=== PATIENT | female | born 1950 | race Caucasian/White ===

== ENCOUNTER 2021-10-12 17:25 | Emergency (ER) | payer MEDICARE, BC, SELFPAY ==
[2021-10-12 17:41] VITALS: BP 132/86; PULSE 71; RESP 18; TEMP 37.3; O2SAT 97; BMI 25.1
--- NOTE | 2021-10-12 18:08 | ED.GENADULT ---
HPI - General Adult General Date Seen: 10/12/21 Chief complaint: Urogenital Problems, Female Stated complaint: Urinary tract pain and blood in urine Time Seen by Provider: 10/12/21 17:39 Source: patient History of Present Illness HPI narrative: Patient is a 71-year-old woman who presents for evaluation of dysuria, suprapubic pain, and hematuria which started a little earlier this afternoon. She does note that after arriving here in the emergency department her symptoms seem to be improved. She has not had any severe unilateral abdominal or flank pain, denies any history of kidney stones. She has not had any fever or vomiting. She does note maybe a little bit of nausea. She does have a history of urinary tract infection and felt that her symptoms were similar to previous urinary tract infections. She has not had any diarrhea, black or bloody stools. Denies any other recent illness. She does not smoke or drink. She is here today with her granddaughter, [place]. Medications are reviewed. Related Data Home Medications Medication Instructions Recorded Confirmed diltiazem HCl 120 mg mg PO 10/12/21 capsule,extended release 24 hr metoprolol succinate 25 mg mg PO 10/12/21 tablet,extended release 24 hr omeprazole 20 mg capsule,delayed mg 10/12/21 release sertraline 50 mg tablet mg 10/12/21 Allergies Allergy/AdvReac Type Severity Reaction Status Date / Time Inhaled Anesthetics (Halogen AdvReac Mild Verified 10/12/21 17:45 Based) Review of Systems Status of ROS: Reports: 10 or more systems reviewed and unremarkable except as noted in History and below PFSH PFS Social History Smoking Status: Former smoker What tobacco products do you use: cigarettes Smoking quit date/years: >15 years ago Do you use any of these nicotine containing products: None How often do you have a drink containing alcohol: monthly or less AUDIT-C Alcohol total score: 1 Non-prescribed substance use: denies use Exam Narrative: Exam Narrative: Vital signs as noted above. In general, an alert, well-appearing patient. Head: Normocephalic, atraumatic. Eyes: Pupils are equal reactive. Extraocular movements are full. Conjunctivae are normal. ENT: Mucous membranes are moist. Throat is normal. Neck: Supple without lymphadenopathy. Heart: Regular rate and rhythm. No murmur or rub. Lungs: Clear bilaterally. No increased work of breathing, crackles or wheezes. No CVA tenderness. Abdomen: Soft and nontender. No organomegaly. Extremities: Well perfused. No edema. No calf tenderness. Pulses intact. Neurologic: Patient is alert and oriented to person and place. Speech is fluent. Face is symmetric. Moves all extremities equally. Affect: Normal. Skin: Warm and dry. Well perfused. Const: Vital Signs, click to edit/add: Vital Signs - 24 hr 10/12/21 17:41 10/12/21 19:16 Temperature 99.1 F 99.1 F Pulse Rate [Left P ulse Oximeter] 71 Respiratory Rate 18 18 Blood Pressure [Ri ght Upper Arm] 132/86 132/86 Pulse Oximetry 97 97 Oxygen Delivery Me thod Room Air Room Air Documenting provider has reviewed patient's vital signs: yes Course Course Hospital Course: We obtained a urine sample here, this is notable for greater than 100 red blood cells, 3+ protein, 3+ blood, 10-25 white blood cells and few bacteria. She continues to deny any abdominal or flank pain, and as such I think the likelihood of kidney stone is relatively low. She does continue to note some dysuria. Given that she has only had symptoms for a few hours and does not have any systemic complaints, I do not think she needs further workup at this time for systemic infection. I think it is reasonable to treat her with antibiotics at this time, with the caveats that if she is having any worsening, such as fevers, flank pain, chills, vomiting etcetera that she should return for re-evaluation. She is comfortable with that. I have given her Keflex out of [facility] due to the late hour. She can use [id number] Pyridium if needed for symptomatic relief as well. Vital Signs Vital signs: Initial Vital Signs Temperature 99.1 F 10/12/21 17:41 Temperature Source Temporal Artery Scan 10/12/21 17:41 Pulse Rate 71 10/12/21 17:41 Respiratory Rate 18 10/12/21 17:41 Blood Pressure 132/86 10/12/21 17:41 Blood Pressure Mean 101 10/12/21 17:41 Blood Pressure Position Sitting 10/12/21 17:41 Pulse Oximetry 97 10/12/21 17:41 Oxygen Delivery Method 10/12/21 17:41 Vital Signs Temperature 99.1 F 10/12/21 17:41 Pulse Rate 71 10/12/21 17:41 Respiratory Rate 18 10/12/21 17:41 Blood Pressure 132/86 10/12/21 17:41 Pulse Oximetry 97 10/12/21 17:41 Oxygen Delivery Method 10/12/21 17:41 Temperature 99.1 F 10/12/21 19:16 Pulse Rate 71 10/12/21 17:41 Respiratory Rate 18 10/12/21 19:16 Blood Pressure 132/86 10/12/21 19:16 Pulse Oximetry 97 10/12/21 19:16 Oxygen Delivery Method 10/12/21 19:16 Medical Decision Making Lab Data Labs: Lab Results 10/12/21 Range/Units 18:30 Urine Color Red A (Yellow) Urine Appearance Cloudy A (Clear) Urine pH 5.5 (5.0-8.5) Ur Specific [place] >= 1.030 (1.000-1.030) Urine Protein 3+ A (Negative) Urine Glucose (UA) Negative (Negative) Urine Ketones Negative (Negative) Urine Blood 3+ A (Negative) Urine Nitrite Negative (Negative) Urine Bilirubin 1+ A (Negative) Urine Urobilinogen 0.2 (0.2-1.0) Ur Leukocyte Esterase 1+ A (Negative) Urine RBC >100 A (0-2) Urine WBC 10-25 A (0-5) Ur Squamous Epith Cells Few (None-Few) Urine Bacteria Few A (None) Discharge Plan Discharge Clinical Impression: Urinary tract infection Patient Disposition: Home, Self-Care Condition: Stable Instructions: Urinary Tract Infection in Women (DC) Additional Instructions: Antibiotic as prescribed. Return to the ER at any time for worsening such as fevers, severe abdominal or flank pain, vomiting, weakness, or other worsening. Prescriptions: No Action omeprazole 20 mg capsule,delayed release(DR/EC) diltiazem HCl 120 mg capsule,extended release 24hr PO metoprolol succinate 25 mg tablet extended release 24 hr PO sertraline 50 mg tablet Follow Up/Referrals: Lupe Law MD [Primary Care Provider] - Stand Alone Forms: [employer] Info Instructions
[2021-10-12 18:53] LABS: Appearance Urine Cloudy (Clear); Bilirubin Urine 1+ (Negative); Blood Urine 3+ (Negative); Color Urine Red (Yellow); Glucose Urine Negative (Negative); Ketones Urine Negative (Negative); Leukocyte Esterase Urine 1+ (Negative); Nitrite Urine Negative (Negative); Protein Urine 3+ (Negative); Specific Gravity Urine >= 1.030 (1.000-1.030); Urobilinogen Urine 0.2 (0.2-1.0); pH Urine 5.5 (5.0-8.5)
[2021-10-12 19:02] LABS: Bacteria Urine Few; RBC Urine >100 (0-2); Squamous Epithelial Cell Urine Few (None-Few)
[2021-10-12 19:16] VITALS: BP 132/86; RESP 18; TEMP 37.3; O2SAT 97
== END 2021-10-12 20:12 | disposition home or self-care (01) ==
PROVIDERS: Emergency Provider Emergency Medicine; PCP Family Medicine
DX: N39.0 Urinary tract infection, site not specified (principal); R31.0 Gross hematuria
CPT/HCPCS: 81001; 87086; 99283

== ENCOUNTER 2021-11-10 13:28 | Emergency (ER) | payer MEDICARE, BC, SELFPAY ==
[2021-11-10 13:45] VITALS: BP 152/94; PULSE 87; RESP 16; TEMP 36.6; O2SAT 96; BMI 24.6
[2021-11-10 14:18] LABS: Bacteria Urine Many; RBC Urine >100 (0-2); Squamous Epithelial Cell Urine Few (None-Few); WBC Urine 50-100 (0-5)
--- NOTE | 2021-11-10 16:33 | ED.GENADULT ---
HPI - General Adult General Time Seen by Provider: 16:33 Date Seen: 11/10/21 Chief complaint: Urogenital Problems, Female Stated complaint: Bladder infection Time Seen by Provider: 11/10/21 13:40 Source: patient Mode of arrival: ambulatory Limitations: no limitations History of Present Illness HPI narrative: Patient is a 71 white female who has a history of UTI about a month ago has this recurrent symptom. She is having no fevers or chills but has dysuria and frequency some lower abdominal discomfort. She has a positive UA. She was treated with Keflex. The patient now will experience similar symptoms with a dysuria frequency. No flank pain no rigors, no chills, the patient sees Dr. Perdue for primary care. She has low concern why she is getting these recurrent lay. She denies sexual activity at this time Related Data Home Medications Medication Instructions Recorded Confirmed diltiazem HCl 120 mg mg PO 10/12/21 capsule,extended release 24 hr metoprolol succinate 25 mg mg PO 10/12/21 tablet,extended release 24 hr omeprazole 20 mg capsule,delayed mg 10/12/21 release sertraline 50 mg tablet mg 10/12/21 Previous Rx's Medication Instructions Recorded ciprofloxacin HCl 250 mg tablet 250 mg PO BID #14 tabs 11/10/21 (Cipro) Allergies Allergy/AdvReac Type Severity Reaction Status Date / Time Inhaled Anesthetics (Halogen AdvReac Mild Verified 10/12/21 17:45 Based) Review of Systems Status of ROS: Reports: 6 or more systems reviewed and unremarkable except as noted in History and below PFSH PFSH Social History Smoking Status: Former smoker What tobacco products do you use: cigarettes Smoking quit date/years: >15 years ago Do you use any of these nicotine containing products: None How often do you have a drink containing alcohol: monthly or less AUDIT-C Alcohol total score: 1 Non-prescribed substance use: denies use Exam Narrative: Exam Narrative: Objective: The patient is no apparent distress, afebrile Negative flank pain negative suprapubic pain Urinalysis is positive for urinary tract infection Const: Vital Signs, click to edit/add: Vital Signs - 24 hr 11/10/21 13:45 Temperature 97.9 F Pulse Rate [Left P ulse Oximeter] 87 Respiratory Rate 16 Blood Pressure [Ri ght Upper Arm] 152/94 H Pulse Oximetry 96 Oxygen Delivery Me thod Room Air Course Vital Signs Vital signs: Initial Vital Signs Temperature 97.9 F 11/10/21 13:45 Temperature Source Temporal Artery Scan 11/10/21 13:45 Pulse Rate 87 11/10/21 13:45 Pulse Rhythm 11/10/21 13:45 Pulse Strength 3+ Normal 11/10/21 13:45 Respiratory Rate 16 11/10/21 13:45 Blood Pressure 152/94 H 11/10/21 13:45 Blood Pressure Mean 113 11/10/21 13:45 Blood Pressure Position Sitting 11/10/21 13:45 Pulse Oximetry 96 11/10/21 13:45 Oxygen Delivery Method 11/10/21 13:45 Vital Signs Temperature 97.9 F 11/10/21 13:45 Pulse Rate 87 11/10/21 13:45 Respiratory Rate 16 11/10/21 13:45 Blood Pressure 152/94 H 11/10/21 13:45 Pulse Oximetry 96 11/10/21 13:45 Oxygen Delivery Method 11/10/21 13:45 Temperature 97.9 F 11/10/21 13:45 Pulse Rate 87 11/10/21 13:45 Respiratory Rate 16 11/10/21 13:45 Blood Pressure 152/94 H 11/10/21 13:45 Pulse Oximetry 96 11/10/21 13:45 Oxygen Delivery Method 11/10/21 13:45 Medical Decision Making MDM Narrative Medical decision making narrative: Patient was recently treated for UTI with Keflex, will treat with Cipro 250 b.i.d. x7 days now will give her Rocephin 500 mg IM. Have her follow up with Dr. Her Etienne within the next few days to discuss ongoing options. Return sooner to the ED as needed Lab Data Labs: Lab Results 11/10/21 Range/Units 13:53 Urine RBC >100 A (0-2) Urine WBC 50-100 A (0-5) Ur Squamous Epith Cells Few (None-Few) Urine Bacteria Many A (None) Discharge Plan Discharge Clinical Impression: Urinary tract infection Patient Disposition: Home, Self-Care Condition: Stable Additional Instructions: Rest fluids light activity, recheck with Dr. Ramos in [place] within the next few days. Cipro twice a day orally for 1 week. Activity Level: Light activity Discharge Diet: Regular Prescriptions: New ciprofloxacin HCl [Cipro] 250 mg tablet 250 mg PO BID Qty: 14 0RF No Action omeprazole 20 mg capsule,delayed release(DR/EC) diltiazem HCl 120 mg capsule,extended release 24hr PO metoprolol succinate 25 mg tablet extended release 24 hr PO sertraline 50 mg tablet Follow Up/Referrals: Lupe Law MD [Primary Care Provider] - Stand Alone Forms: [facility] Info Instructions
[2021-11-10] MEDS: LIDOCAINE 1% 5 ml (pf) 5 ML VIAL 1 ML IM (16:47)
[2021-11-10] MEDS: cefTRIAXone 500 MG VIAL IM (16:47)
--- OUTSIDE RECORDS SUMMARY | 2021-11-10 16:49 | XMS_ITS | Clinical Summary ---
:1950 Author Organization [employer] [facility] [place] [address] Care Team Providers Name Role Phone Veronica Leon NP Primary Care Provider Allergies Active Allergy Reactions Severity Noted Date Comments Fentanyl Vomiting 09/06/2021 vomiting x3 day s Medications Medication Sig Dispensed Refills Start Date End Date Status ASPIRIN 81 MG TAB, take 1 tablet 0 10/10/2007 Active DELAYED (81 mg) by oral RELEASEIndications: route once Unspecified essential daily hypertension prochlorperazine Take 1 tablet 30 tablet 1 11/17/2015 Active (COMPAZINE) 10 mg by mouth every tabletIndications: 6 hours if Migraine without status needed for migrainosus, not abortive intractable, unspecified therapy for migraine type migraine headache along with 500mg naproxen. ketoconazole 2% shampoo WASH AFFECTED 0 01/20/2020 Active (NIZORAL) 2 % shampoo AREAS OF THE SCALP 2 TO 3 TIMES WEEKLY. LATHER AND LET SIT 3 TO 5 MINUTES PRIOR TO RINSING fluticasone (50 mcg per INSTILL 2 0 11/16/2019 Active actuation) nasal SPRAYS IEN D solution (FLONASE) clobetasol 0.05% TOPICAL 0 01/20/2020 Active (TEMOVATE) 0.05 % external solution triamcinolone APPLY TO THE 0 01/20/2020 Ac tive (ARISTOCORT; KENALOG) AFFECTED AREA 0.1 % cream ON BODY ONCE TO TWICE DAILY FOR UP TO 2 WEEKS AT A TIME. 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 sertraline (ZOLOFT) 50 Take 1 Tablet 90 Tablet 1 09/06/2021 Active mg tabletIndications: (50 mg) by Anxiety, Depression, mouth once recurrent (HC) daily. omeprazole (PriLOSEC) 20 Take 1 Capsule 90 Capsule 3 2 Active mg Delayed-Release (20 mg) by capsuleIndications: mouth once Gastroesophageal reflux daily before a disease with meal. esophagitis, unspecified whether hemorrhage dilTIAZem CD (CARDIZEM Take 1 Capsule 90 Capsule 1 09/06/2021 Active CD) 120 mg extended (120 mg) by release 24 hr mouth once capsuleIndications: daily. Coronary vasospasm (HC), Hypertension, unspecified type metoprolol succinate Take 1 Tablet 90 Tablet 1 09/06/2021 Active (TOPROL XL) 25 mg (25 mg) by Sustained-Release mouth once tabletIndications: daily. Hypertension, unspecified type, Migraine without status migrainosus, not intractable, unspecified migraine type naproxen (NAPROSYN) 500 Take 1 Tablet 30 Tablet 2 09/06/2021 Active mg tabletIndications: (500 mg) by Migraine without status mouth every 12 migrainosus, not hours if needed intractable, unspecified for Headache. migraine type Active Problems Problem Noted Date Depression, recurrent 09/06/2021 Chronic diarrhea 09/23/2020 Biliary dyskinesia 09/23/2020 Adenomatous polyp of colon 09/22/2020 Overview: sessile serrated adenoma last colonoscopy 11/[facility], 13-14 polyps Prinzmetal angina 09/22/2020 Overview: Coronary angiogram Garg without signif icant disease 11/16/2015 history of normal echo Hiatal hernia 09/22/2020 Other hemorrhoids 09/22/2020 Esophagitis 09/22/2020 Gastroesophageal reflux disease with esophagitis 09/22 Vasospastic angina 06/08/2018 Chest pain 11/16/2015 Overview: had evaluation at [facility] and told not to take imitrex any more, no further chest pain. Psoriasis 08/01/2012 Hypertension 08/01/2012 Dysthymia 10/10/2007 Osteoporosis, unspecified Overview: fosamax 2001 declines further medications or testing DEXA 12/05/19 Migraine, unspecified, without mention o f intractable migraine without mention of status migrainosus Overview: CAN'T TAKE IMITREX using naproxen and metoprolol Personal history of colonic polyps Resolved Problems Problem Noted Date Resolved Date Gastroesophageal reflux disease without esophagitis 09/23/19 21 09/22/2020 Routine general medical examination at [facility] 009 09/23/2020 facility Overview: Colonoscopy normal 2005 Unspecified essential hypertension 10/10/200709/23 Diarrhea 10/10/2007 01/27/2009 Depressive disorder, not elsewhere classified 10/10/2007 Other psoriasis 09/23/2020 Encounters Date Type Specialty Care Team Description 10/12/2021 Travel 10/12/2021 Nurse Triage Veronica Leon NP Urinary P roblem 09/06/2021 Office Visit Veronica Leon NP Medicatio n Management 09/06/2021 Travel 09/03/2021 Refill Veronica Leon NP Refill Re quest (Sertraline) 08/19/2021 Refill Veronica Leon NP Refill Re quest (Diltiazem Cd) 08/19/2021 Telephone Veronica Loen NP Refill Re quest (dilTIAZem CD (CARDIZEM CD) 1 20 mg extended release 24 hr c apsule) from Last 3 Months Immunizations Name Administration Dates Next Due Influenza, High-dose Inactivated 11/08/2018 Influenza, High-dose Quadrivalent Inactivated 11/29/2019 Influenza, IIV3 (Age >=3 years) 10/20/2008, 12/11/2002 Pneumococcal Poly,23-Valent (Pneumovax) 06/08/2016 Pneumococcal conj 13-Valent (Prevnar 13) 10/30/2014 Td (Age >=7 Years) 06/08/2016 Tdap 09/06/2006 Zoster (Zostavax-ZVL, live) 02/01/2011 Family History Medical History Relation Name Comments Cancer Brother 1 Presley thyroid Hypertension Brother 1 Presley Hypertension Brother 2 Hypertension Brother 3 Hypertension Brother 4 Emphysema Father Gallbladder disease Father Cancer-breast Mother Heart attack Mother At age 87 Hypertension Mother Stroke Paternal Grandmother age 60's, l ived into 90's Hypertension Sister 1 martha Herbert Hypertension Sister 2 Cancer-colon No Family History Relation Name Status Comments Brother 1 Presley Alive Brother 2 Alive Brother 3 Alive Brother 4 Alive Daughter Alive Father (Age 73) empnysema Maternal Grandfather Maternal Grandmother Mother Paternal Grandfather Paternal Grandmother Sister 1 martha Herbert Alive Sister 2 Alive Sister 3 Alive Son 1 Alive Son 2 Alive Son 3 Alive Social History Tobacco Use Types Packs/Day Years Used Date Former Smoker Smokeless Tobacco: Never Used Comments: 17 light smoking Alcohol Use Standard Drinks/Week Comments No 0 (1 standard drink = 0.6 oz pure alcoho l) Sex Assigned at Date Recorded Not on file COVID-19 Exposure Response Date Recorded In the last 10 days, have you been in contact with No / Unsu re 10/12/2021 4:15 PM CDT someone who was confirmed or suspected to have Coronavirus/COVID-19? Obstetrics History Para Term AB IAB SAB Ectopic Multiple Living Live Births 4 4 4 Date Outcome GA Total Labor/2nd/3rd Weight Sex Delivery Anes PTL Maryann A 1 A5 Name Clin Labor Para Para Para Para Last Filed Vital Signs Vital Sign Reading Time Taken Comments Blood Pressure 128/82 09/06/2021 12:55 PM CDT Pulse 76 09/06/2021 12:55 PM CDT Temperature 36.5 ??C (97.7 ??F) 11/17/2015 3:00 PM CDT Respiratory Rate 16 11/04/2020 12:30 PM CDT Oxygen Saturation 96% 11/04/2020 12:45 PM CDT Inhaled Oxygen Concentration - - Weight 61.2 kg (135 lb) 09/06/2021 12:55 PM CDT Height 154.9 cm (5' 1) 09/06/2021 12:55 PM CDT Body Mass Index 25.51 09/06/2021 12:55 PM CDT Plan of Treatment Health Maintenance Due Date Last Done Comments COVID-19 vaccine series (#1) 1950 Zoster (shingles) series for age 0203/29/2011 02/01/2011 50+ (2 of 3) DEXA/DXA scan for age 65+ 2013 10/12/2007 Medicare Wellness for age 65+ 09/23/2021 09/23/2020 Influenza for age 65+ 10/07/2021 11/29/2019, 11/08/2018, 10/20/2008, Additional history exists Mammogram for age 45-75 12/07/2021 12/07/2020, 10/30/2014, 02/01/2011, Additional history exists BMI (ht and wt on same day) for 09/06/2022 09/06/2021, 09/06 age 18+ Depression screening for age 12+ 09/06/2022 09/06/2021, , 09/23/2020 Tetanus booster 06/08/2026 06/08/2016, 09/06/2006 Lipids for age 45-75 09/06/2026 09/06/2021, 09/23/2020, 10/12/2007 Colonoscopy through age 75 11/04/2030 11/04/2020, , 02/01/2010 Tdap Completed 09/06/2006 Pneumococcal series for age 65+ Completed 06/08/2016, 10/08 Hepatitis C screening for age Completed 09/23/2020 18-79 Procedures Procedure Name Priority Date/Time Associated Diagnosis Comme nts CBC WITH AUTO Routine 09/06/2021 1:44 PM Hypertension, Results for this DIFFERENTIAL CDT unspecified type procedure a re in the results section. CBC WITH AUTO Routine 09/06/2021 1:44 PM Hypertension, Results for this DIFFERENTIAL CDT unspecified type procedure a re in the results section. BASIC METABOLIC PANEL Routine 09/06/2021 1:44 PM Hypertension, Results for this CDT unspecified type procedure a re in the results section. LIPID PANEL W REFLEX Routine 09/06/2021 1:44 PM Hypertension, Results for this MEASURED LDL CDT unspecified type procedure a re in the results section. from Last 3 Months Results (ABNORMAL) CBC WITH AUTO DIFFERENTIAL (09/06/2021 1:44 PM CDT) [facility] Method Time Signature WHITE BLOOD 10.2 4.5 - 11.0 09/06/2021 [place] COUNT thou/cu mm 2:11 PM [facility]NOTE 3[facility] RED BLOOD COUNT 4.55 4.00 - 09/06/2021 [place] 5.20 2:11 PM [facility] [place] mil/cu mm LABORATORY HEMOGLOBIN 13.7 12.0 - 09/06/2021 [place] 16.0 g/dL 2:11 PM [facility] [place] LABORATORY HEMATOCRIT 41.2 33.0 - 09/06/2021 [place] 51.0 % 2:11 PM [facility] [place] LABORATORY MCV 91 80 - 100 09/06/2021 [place] fL 2:11 PM [facility] MCH 30.1 26.0 - 09/06/2021 [place] 34.0 pg 2:11 PM [facility] [place] LABORATORY MCHC 33.3 32.0 - 09/06/2021 [place] 36.0 g/dL 2:11 PM [facility] [place] LABORATORY RDW 14.5 11.5 - 09/06/2021 [place] 15.5 % 2:11 PM [facility] [place] LABORATORY PLATELET COUNT 240 140 - 440 09/06/2021 [place] thou/cu mm 2:11 PM [facility] [place] LABORATORY MPV 10.5 6.5 - 11.0 09/06/2021 [place] fL 2:11 PM [facility] [place] LABORATORY % NEUT 58.2 % 09/06/2021 [place] 2:11 PM [facility] [place] LABORATORY % LYMPH 31.4 % 09/06/2021 [place] 2:11 PM [facility] % MONO 8.0 % 09/06/2021 [place] 2:11 PM [facility] [place] LABORATORY % EOS 1.8 % 09/06/2021 [place] 2:11 PM [facility] [place] LABORATORY % BASO 0.6 % 09/06/2021 [place] 2:11 PM [facility] [place] LABORATORY ABSOLUTE 5.9 1.7 - 7.0 09/06/2021 [place] NEUTROPHILS thou/cu mm 2:11 PM [facility] [place] LABORATORY ABSOLUTE 3.2 (H) 0.9 - 2.9 09/06/2021 [place] LYMPHOCYTES thou/cu mm 2:11 PM [facility] [place] LAB[facility]ORY ABSOLUTE 0.8 <0.9 09/06/2021 [place] MONOCYTES thou/cu mm 2:11 PM [facility] [place] LAB[facility]ATORY ABSOLUTE 0.2 <0.5 09/06/2021 [place] EOSINOPHILS thou/cu mm 2:11 PM [facility] [place] LAB[facility]ORY ABSOLUTE 0.1 <0.3 09/06/2021 [place] BASOPHILS thou/cu mm 2:11 PM [facility] [place] LAB[facility]ORY Specimen Anatomical Collection Method / Collection Time Recei patrizia Time (Source) Location / Volume Laterality Blood BLOOD SPECIMEN / Venipuncture / 09/06/2021 1:44 2021 1:46 Unknown Unknown PM CDT PM CDT Veronica Leon NP HEMATOLOGY Performing Organization Address City/State/ZIP Code Phon e Number [facility] [address] [place] [address] LIPID PANEL W REFLEX MEASURED LDL (09/06/2021 1:44 PM CDT) [facility] Method Time Signature CHOLESTEROL,TOTAL 168 100 - 199 09/06/2021 [place] mg/dL 2:35 PM [facility] [place] LAB[facility]ORY TRIGLYCERIDES 75 <150 09/06/2021 [place] mg/dL 2:35 PM [facility] HDL CHOLESTEROL 61 >40 mg/dL 09/06/2021 [place] 2:35 PM [facility] [place] LAB[facility] NON-HDL 107 <145 09/06/2021 [place] CHOLESTEROL mg/dl 2:35 PM [facility] CHOL/HDL RATIO 2.75 <4.50 09/06/2021 [place] 2:35 PM [facility] [place] LDL CHOLESTEROL 92 <=130 09/06/2021 [place] mg/dL 2:35 PM [facility] [place] VLDL CHOLESTEROL 15 <=30 09/06/2021 [place] mg/dL 2:35 PM [facility] [place] PROVIDER ORDERED RANDOM 09/06/2021 [place] STATUS 2:35 PM [facility] [place] Specimen Anatomical Collection Method / Collection Time Recei patrizia Time (Source) Location / Volume Laterality Blood BLOOD SPECIMEN / Venipuncture / 09/06/2021 1:44 2021 1:46 Unknown Unknown PM CDT PM CDT Veronica Leon NP CHEMISTRY Performing Organization Address City/State/ZIP Code Phon e Number [facility] [address] [place] [address] (ABNORMAL) BASIC METABOLIC PANEL (09/06/2021 1:44 PM CDT) athologist Signature SODIUM 141 135 - 145 09/06/2021 [place] mmol/L 2:34 PM [facility] POTASSIUM 4.1 3.5 - 5.0 09/06/2021 [place] mmol/L 2:34 PM [facility] CHLORIDE 105 98 - 110 09/06/2021 [place] mmol/L 2:34 PM [facility] CO2,TOTAL 28 21 - 31 09/06/2021 [place] mmol/L 2:34 PM [facility] ANION GAP 8 5 - 18 09/06/2021 [place] 2:34 PM [facility] GLUCOSE 85 65 - 100 09/06/2021 [place] mg/dL 2:34 PM [facility] CALCIUM 9.4 8.5 - 10.5 09/06/2021 [place] mg/dL 2:34 PM [facility] BUN 13 8 - 25 09/06/2021 [place] mg/dL 2:34 PM [facility] CREATININE 0.82 0.57 - 09/06/2021 [place] 1.11 mg/dL 2:34 PM [facility] BUN/CREAT RATIO 16 10 - 20 09/06/2021 [place] 2:34 PM [facility] eGFR 76 (L) >90 09/06/2021 [place] mL/min/1.7 2:34 PM [facility] 3m2 [facility] Comment: As of 2021, eGFR is calcu lated by the CKD-EPI creatinine equation without race adjustment. eGFR can be inf luenced by muscle mass, exercise, and diet. The reported eGFR is an estimation only and is only applicable if the renal function is stable. Specimen Anatomical Collection Method / Collection Time Recei patrizia Time (Source) Location / Volume Laterality Blood BLOOD SPECIMEN / Venipuncture / 09/06/2021 1:44 2021 1:46 Unknown Unknown PM CDT PM CDT Veronica Leon NP CHEMISTRY Performing Organization Address City/State/ZIP Code Phon e Number [facility] [address] [facility] [place] [address] from Last 3 Months Insurance Payer Benefit Plan / Subscriber ID Effective Dates Phone Addre ss Type Group MEDICARE PART A MEDICARE PART A [id number] 2013-Presen ATTN: CLAIMS - HB USE ONLY HB ONLY t [address] [place] [address] MEDICARE PART B MEDICARE PART B [id number] 2013-Presen ATTN: CLAIMS - HB USE ONLY HB ONLY t [address] [place] [address] MEDICARE - PB MEDICARE PB [id number] 2013-Presen ATTN : CLAIMS USE ONLY ONLY t [address] [place] [address] BLUE [employer]OSS BL[employer] OF [id number] 2018-Presen [id number] [place] [address] Advance Directives Latest Code Status on File Code Status Date Activated Date Inactivated Comments Full Code 11/04/2020 10:15 AM 11/04/2020 3:06 PM Code Status Discussion: Per Existing Order Full Code 11/16/2015 3:55 PM 11/17/2015 7:41 PM Full Code 11/16/2015 3:36 PM 11/16/2015 3:55 PM Care Teams Hose Operator Relationship Specialty Start Date End Date Veronica Leon NP PCP - General Nurse Practitioner - Family 09/23/20 [address] [facility] [place] [address]
== END 2021-11-10 17:07 | disposition home or self-care (01) ==
LOC: ED 16:48
PROVIDERS: Emergency Provider Family Medicine; PCP Family Medicine
DX: N39.0 Urinary tract infection, site not specified (principal)
CPT/HCPCS: 81015; 87086; 96372; 99283; J0696

== ENCOUNTER 2022-09-14 12:43 | Outpatient (CLI) | payer MEDICARE, BC, SELFPAY ==
--- NOTE | 2022-09-14 12:48 | CRLHL7_ITS ---
For Patients: As a result of the Century Cures Act, medical imaging exams and procedure reports are released immediately into your electronic medical record. You may view this report before your referring provider. If you have questions, please contact your health care provider. BILATERAL SCREENING MAMMOGRAM WITH COMPUTER-AIDED DETECTION AND TOMOSYNTHESIS TECHNIQUE: CC and MLO views were obtained. These mammographic images have been obtained using full-field digital technique. These mammographic images were interpreted with the benefit of computer-aided detection. Breast Tomosynthesis was used in this interpretation. COMPARISON FILM: 12/01/18, 12/08/16, 11/10/15. FINDINGS: There are scattered areas of fibroglandular density IMPRESSION: There is no radiographic evidence for malignancy. ASSESSMENT: BI-RADS Category 1: Negative RECOMMENDATION: Routine screening mammogram in 1 year. A lay language report of this examination will be provided to the patient. Kvng Martinez M.D. Diagnostic Radiologist [email or web address] Transcribed: 1:32 am DW/Dictated by: Kvng Martinez MD @ 09/15/2022 12:37:00 PM (Electronically Signed)
--- NOTE | 2022-09-14 13:00 | CRLHL7_ITS ---
For Patients: As a result of the Century Cures Act, medical imaging exams and procedure reports are released immediately into your electronic medical record. You may view this report before your referring provider. If you have questions, please contact your health care provider. DXA BONE MINERAL DENSITY STUDY Current height (in): 60.0. Weight (lb): 130.0. Menopause age: 53. Ethnicity: White. 1. Have you had a previous hip or vertebral fracture? No. 2. Have you had any fractures during your adult life which did not result from significant trauma (e.g., auto accident)? No. 3. Did either of your parents have a hip fracture? No. 4. Do you smoke? No. 5. Have you ever taken Glucocorticoids? No. 6. Do you have rheumatoid arthritis? No. 7. Do you have secondary osteoporosis? No. 8. Do you drink 3 or more alcoholic drinks per day? No. 9. Are you being treated for osteoporosis? No. 10. Have you ever taken any of the following medications: Actonel, Evista, Fosamax, Miacalcin, Reclast, Boniva, Forteo, HRT (i.e. estrogen/hormone therapy), Protelos, Prolia, Vitamin D, Calcium, other ??? please specify. ANSWER: Yes, calcium. 11. Do you have any of the following medical conditions: Anorexia or bulimia, asthma or emphysema, end stage renal disease, hyperparathyroidism, any seizure disorders, cancer, inflammatory bowel diseases, hysterectomy, other ??? please specify. ANSWER: Yes, hysterectomy. 12. What was your maximum height (inches)? 62. 13. Do you perform weight bearing exercise regularly? No. 14. Do you regularly consume dairy products? No. 15. Do you drink caffeinated beverages? Yes. 16. At what age did your period start? 15. 17. Are you premenopausal? No. 18. How many full term pregnancies have you had? 4. 19. Have you ever missed your period for more than 6 months in a row (not including or menopause)? Yes. TECHNIQUE: Bone mineral density study was performed using the [employer]. FINDINGS: The results of the study expressed as bone mineral density (BMD) are as follows: Lumbar spine L1 to L4: BMD: 0.742 g/cm2. T-score: -2.8. Z-score: -0.4. Neck Left: BMD: 0.555 g/cm2. T-score: -2.6. Z-score: -0.6. Right: BMD: 0.543 g/cm2. T-score: -2.8. Z-score: -0.7. Total Left: BMD: 0.781 g/cm2. T-score: -1.3. Z-score: 0.4. Right: BMD: 0.739 g/cm2. T-score: -1.7. Z-score: 0.1. IMPRESSION: Osteoporosis. *Comparison exams done prior to 07/2019 were performed on different unit, [employer]. COMPARISON: Compared with scan of 12/05/2019, the bone mineral density has increased by 0.5 percent at the spine and increased by 3.6 percent at the hip. Compared with scan of 06/15/2017, the bone mineral density has decreased by 5.9 percent at the spine and increased by 3.0 percent at the hip. Kvng Martinez M.D. Diagnostic Radiologist [email or web address] LYNNETTE/deny / be/Dictated by: Kvng Martinez MD @ 09/14/2022 1:45:00 PM (Electronically Signed)
== END 2022-09-14 12:44 | disposition home or self-care (01) ==
LOC: RAD 12:43
PROVIDERS: PCP Family Medicine; Visit Provider Family Medicine
DX: Z12.31 Encounter for screening mammogram for malignant neoplasm of breast (principal); M81.0 Age-related osteoporosis without current pathological fracture
CPT/HCPCS: 77063; 77067; 77080

== ENCOUNTER 2022-11-29 23:34 | Emergency (ER) | payer MEDICARE, BC, SELFPAY ==
[2022-11-29 23:38] VITALS: BP 177/123; PULSE 68; RESP 16; TEMP 36.1; O2SAT 95; BMI 23.0
--- NOTE | 2022-11-29 23:51 | PC.NURSE ---
Dr Mejia updated on patients symptoms in triage of sudden vertigo 1 hour ago, patient does not have any neuro deficit at this time. dizziness is improving. MD declined calling stroke code at this time.
[2022-11-29 23:55] VITALS: BP 192/107; PULSE 68; RESP 16; O2SAT 93
[2022-11-30] VITALS (23 sets, daily range): BP systolic 149–202; BP diastolic 89–139; PULSE 70–94; RESP 12–16; O2SAT 86–99
--- NOTE | 2022-11-30 00:05 | ED.GENADULT ---
HPI - General Adult General Chief complaint: Nausea/Vomiting Stated complaint: Dizziness, vomiting Time Seen by Provider: 11/30/22 00:05 History of Present Illness HPI narrative: about 1 hour ago felt very dizzy and nausea, prior to that not having any symptoms. denies headache . denies previous vertigo hx, dizziness still kind of there but has improved. no previous hx of stroke, has hx of migraines. no neuro symptoms currently. has thrown up 3-4 times in the last hour. 72-year-old woman presenting to the emergency department with complaint of abrupt onset of dizziness and subsequent nausea beginning about an hour and a half ago. She had been watching television and got up to the kitchen to make herself a snack and that we somewhat cocoa and then was starting to do dishes. Then was dizzy. Does not have a headache. Does have a history of migraines as well as vertigo she says. Symptoms, dizziness, is worse with head movement and markedly less when she closes her eyes and holds still. Also history of Prinzmetal's angina but without ?significant disease?. She has vomited a number of times. No loss of sensation no focal weakness. Has been having some congested ears lately. Has not had cerebrovascular issue. No chest pain or shortness of breath. Not with abdominal pain. Related Data Previous Rx's Medication Instructions Recorded diltiazem HCl 120 mg 120 mg PO QDAY #90 caps 07/06/22 capsule,extended release 24 hr metoprolol succinate 25 mg 25 mg PO QDAY #90 tabs 07/06/22 tablet,extended release 24 hr omeprazole 20 mg capsule,delayed 20 mg PO QDAY #90 caps 07/06/22 release sertraline 100 mg tablet 100 mg PO QDAY #90 tabs 08/31/22 naproxen 500 mg tablet 500 mg PO Q12H PRN for headache 10/06/22 #15 tabs diazepam 5 mg tablet 2.5 - 5 mg (0.5 - 1 x 5 mg) PO TID 11/30/22 PRN For dizziness #6 tabs meclizine 25 mg tablet (Dramamine 25 mg PO TID #21 tabs 11/30/22 (meclizine)) ondansetron 4 mg disintegrating 4 mg PO Q4-6H PRN nausea and 11/30/22 tablet vomiting #15 tabs Allergies Allergy/AdvReac Type Severity Reaction Status Date / Time lisinopril Allergy Mild Cough Verified 10/13/22 12:34 Inhaled Anesthetics (Halogen AdvReac Mild Verified 10/13/22 12:34 Based) Review of Systems Status of ROS: Reports: 6 or more systems reviewed and unremarkable except as noted in History and below [facility] Medical History Mixed hearing loss ?H90.8 - Mixed conductive and sensorineural hearing loss, unspecified (ICD-10) Prolapse of female pelvic organs ?N81.9 - Female genital prolapse, unspecified (ICD-10) History of vaginal delivery Dyslipidemia ?E78.5 - Hyperlipidemia, unspecified (ICD-10) Seasonal allergies ?J30.2 - Other seasonal allergic rhinitis (ICD-10) History of adenomatous polyp of colon ?Z86.010 - Personal history of colonic polyps (ICD-10) Generalized anxiety disorder ?F41.1 - Generalized anxiety disorder (ICD-10) Chronic diarrhea of unknown origin (08/01/12) ?K52.9 - Noninfective gastroenteritis and colitis, unspecified (ICD-10) Psoriasis (08/01/12) ?L40.9 - Psoriasis, unspecified (ICD-10) Prinzmetal angina (2015) ?I20.1 - Angina pectoris with documented spasm (ICD-10) Osteoporosis ?M81.0 - Age-related osteoporosis without current pathological fracture (ICD-10) Migraine with aura ?G43.109 - Migraine with aura, not intractable, without status migrainosus (ICD-10) Hypertension (2012) ?I10 - Essential (primary) hypertension (ICD-10) Gastroesophageal reflux disease ?K21.9 - Gastro-esophageal reflux disease without esophagitis (ICD-10) Depression ?F32.A - Depression, unspecified (ICD-10) Surgical History H/O hysterectomy with unilateral oophorectomy (1994) ?Z90.710 - Acquired absence of both cervix and uterus (ICD-10) ?Z90.721 - Acquired absence of ovaries, unilateral (ICD-10) History of coronary angiogram (2015) ?Z98.890 - Other specified postprocedural states (ICD-10) Status post tonsillectomy ?Z90.89 - Acquired absence of other organs (ICD-10) Status post appendectomy ?Z90.49 - Acquired absence of other specified parts of digestive tract (ICD-10) History of shoulder surgery (03/2019) ?Z98.890 - Other specified postprocedural states (ICD-10) History of esophagogastroduodenoscopy (EGD) (04/16/12) ?Z98.890 - Other specified postprocedural states (ICD-10) History of colonoscopy with polypectomy (04/16/12) ?Z98.890 - Other specified postprocedural states (ICD-10) ?Z86.010 - Personal history of colonic polyps (ICD-10) Family History Mother Diabetes Osteoporosis Migraine Breast cancer Coronary artery disease, Onset Age: 87 High blood pressure Father COPD (chronic obstructive pulmonary disease) Son Migraine Paternal Grandmother Migraine Stroke, Onset Age: 60 Maternal Grandfather Suicide Alcohol dependence Brother Thyroid cancer High blood pressure Sister High blood pressure Social History Narrative: , retired, [employer] in [place] Non-smoker quit 1979, about 7 pack years Does not drink alcohol Excessive coffee consumption Smoking Status: Former smoker What tobacco products do you use: cigarettes Smoking quit date/years: >15 years ago Do you use any of these nicotine containing products: None How often do you have a drink containing alcohol: monthly or less AUDIT-C Alcohol total score: 1 Non-prescribed substance use: denies use Little interest or pleasure in doing things: not at all Feeling down, depressed, or hopeless: not at all Exam Narrative: Exam Narrative: Looks uncomfortable. Has a cold damp rag over her forehead. A generalized tremor with movement in the upper extremities which apparently is chronic. Cranial nerves 2-12 look to be intact. She is not demonstrating any nystagmus. Any movement though of her head or movement of her bed elicits much more dizziness. Pupils are brisk and equal and appropriately reactive. I a would like to attempt hints and do so but and limited in this exam as she does not want me to lay the bed beyond 30? or so as she fears it will exacerbate her dizziness. She did however feel that had been worse when rotating her head to the right before. TMs bilaterally are clear without evidence of increased fluid. No facial swelling erythema or tenderness. She does not sound acute just to the nasopharynx. Heart with regular rate head rhythm. Lungs appear to be clear. She is moving all extremities with good strength fluidly other than tremor in the upper extremities is noted. She is well-perfused peripherally without edema in the lower extremities. Const: Vital Signs, click to edit/add: Vital Signs - 24 hr 11/29/22 23:38 11/29/22 23:55 11/30/22 00:22 Temperature 96.9 F L Pulse Rate 72 Pulse Rate [Pulse Oximeter] 68 68 Respiratory Rate 16 16 16 Blood Pressure 181/139 H Blood Pressure [Ri ght Upper Arm] 177/123 H 192/107 H Pulse Oximetry 95 93 94 Oxygen Delivery Me thod Room Air Room Air Oxygen Flow Rate 11/30/22 00:43 11/30/22 00:44 11/30/22 00:45 Temperature Pulse Rate Pulse Rate [Pulse Oximeter] 70 70 Respiratory Rate 16 16 Blood Pressure Blood Pressure [Ri ght Upper Arm] Pulse Oximetry 86 L 95 95 Oxygen Delivery Me thod Room Air Nasal Cannula Nasal Cannula Oxygen Flow Rate 2 2 11/30/22 01:02 11/30/22 01:22 11/30/22 01:41 Temperature Pulse Rate 73 71 71 Pulse Rate [Pulse Oximeter] Respiratory Rate 16 12 16 Blood Pressure 149/89 H 162/89 H 169/92 H Blood Pressure [Ri ght Upper Arm] Pulse Oximetry 98 98 96 Oxygen Delivery Me thod Nasal Cannula Nasal Cannula Oxygen Flow Rate 2 2 11/30/22 02:02 11/30/22 03:36 11/30/22 04:36 Temperature Pulse Rate 72 72 79 Pulse Rate [Pulse Oximeter] Respiratory Rate 14 16 16 Blood Pressure 149/91 H 153/93 H 159/89 H Blood Pressure [Ri ght Upper Arm] Pulse Oximetry 92 98 99 Oxygen Delivery Me thod Nasal Cannula Oxygen Flow Rate 2 11/30/22 07:20 11/30/22 07:21 11/30/22 07:40 Temperature Pulse Rate 82 78 77 Pulse Rate [Pulse Oximeter] Respiratory Rate Blood Pressure 202/112 H Blood Pressure [Ri ght Upper Arm] Pulse Oximetry 92 93 94 Oxygen Delivery Me thod Oxygen Flow Rate 10/25/23 08:26 11/30/22 08:29 11/30/22 08:40 Temperature Pulse Rate 94 81 84 Pulse Rate [Pulse Oximeter] Respiratory Rate Blood Pressure 196/110 H Blood Pressure [Ri ght Upper Arm] Pulse Oximetry 92 93 89 Oxygen Delivery Me thod Oxygen Flow Rate 11/30/22 09:00 11/30/22 09:20 11/30/22 09:28 Temperature Pulse Rate 88 88 89 Pulse Rate [Pulse Oximeter] Respiratory Rate Blood Pressure 163/100 H 163/100 H Blood Pressure [Ri ght Upper Arm] Pulse Oximetry 90 95 94 Oxygen Delivery Me thod Oxygen Flow Rate 11/30/22 09:40 Temperature Pulse Rate 86 Pulse Rate [Pulse Oximeter] Respiratory Rate Blood Pressure Blood Pressure [Ri ght Upper Arm] Pulse Oximetry 94 Oxygen Delivery Me thod Oxygen Flow Rate Documenting provider has reviewed patient's vital signs: yes Course Vital Signs Vital signs: Initial Vital Signs Temperature 96.9 F L 11/29/22 23:38 Temperature Source Temporal Artery Scan 11/29/22 23:38 Pulse Rate 68 11/29/22 23:38 Respiratory Rate 16 11/29/22 23:38 Blood Pressure 177/123 H 11/29/22 23:38 Blood Pressure Mean 141 H 11/29/22 23:38 Blood Pressure Position Supine 11/29/22 23:38 Pulse Oximetry 95 11/29/22 23:38 Oxygen Delivery Method Room Air 11/29/22 23:38 Vital Signs Temperature 96.9 F L 11/29/22 23:38 Pulse Rate 68 11/29/22 23:38 Respiratory Rate 16 11/29/22 23:38 Blood Pressure 177/123 H 11/29/22 23:38 Pulse Oximetry 95 11/29/22 23:38 Oxygen Delivery Method Room Air 11/29/22 23:38 Temperature 96.9 F L 11/29/22 23:38 Pulse Rate 86 11/30/22 10:20 Respiratory Rate 16 11/30/22 04:36 Blood Pressure 157/98 H 11/30/22 10:27 Pulse Oximetry 89 11/30/22 10:20 Oxygen Delivery Method Nasal Cannula 11/30/22 03:36 Oxygen Flow Rate 2 11/30/22 03:36 Medical Decision Making MDM Narrative Medical decision making narrative: I think with this history of vertigo and migraines and somewhat reassuring resolution of dizziness with eye closure or lack of movement, suggesting less likely that this is a central, I think this is more likely a peripheral issue but will test this with IV fluids and Valium. Will also be giving some Zofran. If she is not improved with this treatment would consider further evaluation. Will also work up cardiac; family appears to be in support. EKG is done. Labs reviewed are reassuring. With treatment as above did become somewhat hypoxic needing nasal cannula support but has rebounded. On reassessment notes her symptoms to be markedly lessened though tired enough she is not quite ready to depart. Will go ahead an order for some prednisone as well as also test her oral intake. Blood pressure has definitely improved. Upon reassessment noted that she felt she needed to use the restroom now. In this process became more dizzy. Seems to not be settling down with rest as much as it was before. Discussed potential imaging. Will trial a little more fluids and promethazine. More sleepy with promethazine. It sounds as though the dizziness has improved again but coming and going and seems to be more present now with her eyes open. Sedation is complicating this evaluation. Does not seem terribly exacerbated though with head movement. Will go ahead and do CT head and neck with and without to make sure we do not have any bleed or large vessel occlusion and proceed from there. I have reviewed all images. Have been waiting many hours though to get back overread on CTA head neck. Does not appear to show any occlusion. Mrs. Chaudhry has been sleeping. We have not had any beds overnight for admission nor MRI capabilities overnight. Apparently had improved again until up to go to the bathroom again is now dizzy. Is persisting again even at rest. We do have MRI capabilities now and will do a basic brain MRI to be certain nothing more going on. I reviewed images. Radiology over-read noting that MRI is absent of any acute ischemic event. Worsening again with efforts mobilization. Repeat dosing of Zofran. Reassessment still not feeling well but seems to indicate desire to go home if possible. Given low-dose diazepam and meclizine will need reassessment. May need admission. Lab Data Lab results reviewed: Yes I reviewed the patient's lab results Labs: Lab Results 11/30/22 11/30/22 11/30/22 Range/Units 00:08 00:31 03:18 WBC 11.10 H (4.50-11.00) K/uL RBC 4.51 (4.00-5.20) m/uL Hgb 13.0 (12.0-16.0) gm/dL Hct 40.2 (33.0-51.0) % MCV 89 (80-100) fL MCH 29 (26-34) pg MCHC 32 (32-36) gm/dL RDW Coeff of Espinoza 14.1 (11.5-15.5) % Plt Count 192 (140-440) K/uL Neut % (Auto) 67.4 (42.0-72.0) % Lymph % (Auto) 23.2 (20-44) % Levy % (Auto) 5.7 (0.0-11.0) % Eos % (Auto) 1.7 (0.0-7.0) % Baso % (Auto) 0.4 (0.0-3.0) % Neut # (Auto) 7.50 H (1.7-7.0) K/uL Lymph # (Auto) 2.60 (0.90-2.90) K/uL Levy # (Auto) 0.60 (0.00-0.90) K/UL Eos # (Auto) 0.20 (0.00-0.50) K/uL Baso # (Auto) 0.00 (0.00-0.30) K/uL Abs Immat Gran (auto) 0.20 (0.00-0.30) K/uL Imm/Tot Granulo (auto) 1.6 % INR 0.92 (0.91-1.10) APTT 26 (23-33) Seconds Sodium 143 (135-149) mmol/L Potassium 3.8 (3.6-5.1) mmol/L Chloride 107 (96-114) mmol/L Carbon Dioxide 26 (20-32) mmol/L Anion Gap 10 (7-15) mEq/L BUN 22 (7-30) mg/dL Creatinine 1.0 (0.5-1.5) mg/dL Estimated Creat Clear 40.83 Estimated GFR 59 ml/min Glucose 130 H (60-115) mg/dL Calcium 9.1 (8.4-10.6) mg/dL Magnesium 2.2 (1.5-2.6) mg/dL Troponin I < 0.01 L (0.01-0.04) ng/mL C-Reactive Protein < 0.5 L (0.5-1.0) mg/dL NT-Pro-B Natriuret Pep 85 pg/mL Lab Acknowledgement Test Added POC Troponin I 0.00 L (0.01-0.04) ng/ml ECG Data Attestation: I personally reviewed and interpreted this ECG as follows: (Generally lower amplitude. Normal sinus rhythm with a rate of 72. No acute ischemic changes.) Discharge Plan Discharge Clinical Impression: Benign paroxysmal positional vertigo, Vomiting Patient Disposition: Home w/ Parent or Adult Condition: Stable Additional Instructions: Take care with transitions. You probably need to use a walker to get around in the short term. Have written a prescription for you for this. Do not trust this tipping feeling; try not to react and over-correct what you perceive as a spinning world. If not too sedating take the meclizine regularly, 3 times daily over the next 4 days. For more intense symptoms can try the Valium(diazepam) and then Zofran(ondansetron) for nausea. The diazepam in particular can be sedating. I would expect you to be improving day by day. If not improved at all in 3-4 days, be seen. Especially if vomiting is continuing you can keep up with hydration, will need to be seen sooner. Do your best to stay hydrated. Prescriptions: New ondansetron 4 mg tablet,disintegrating 4 mg PO Q4-6H PRN (Reason: nausea and vomiting) Qty: 15 0RF diazepam 5 mg tablet 2.5 - 5 mg PO TID PRN (Reason: For dizziness) Qty: 6 0RF meclizine [Dramamine (meclizine)] 25 mg tablet 25 mg PO TID Qty: 21 0RF No Action sertraline 100 mg tablet 100 mg PO QDAY Qty: 90 3RF diltiazem HCl 120 mg capsule,extended release 24hr 120 mg PO QDAY Qty: 90 4RF metoprolol succinate 25 mg tablet extended release 24 hr 25 mg PO QDAY Qty: 90 4RF omeprazole 20 mg capsule,delayed release(DR/EC) 20 mg PO QDAY Qty: 90 4RF naproxen 500 mg tablet 500 mg PO Q12H PRN (Reason: for headache) Qty: 15 0RF Follow Up/Referrals: Lupe Law MD [Primary Care Provider] - Stand Alone Forms: [employer] [facility] Info Instructions
[2022-11-30] MEDS: ONDANSETRON 2 MG/ML inj 4 MG IVP ×2 (00:07→07:49)
[2022-11-30] MEDS: 0.9 % SODIUM CHLORIDE 1000 ml 1,000 ML IV (00:07)
[2022-11-30] MEDS: diazePAM 5 MG/ML inj IV (00:39)
[2022-11-30 00:42] LABS: Basophils Percent Auto 0.4 % (0.0-3.0); Eosinophils Percent Auto 1.7 % (0.0-7.0); Hematocrit 40.2 % (33.0-51.0); Immature Granulocytes Pct Auto 1.6 %; Lymphocytes Percent Auto 23.2 % (20-44); Mean Corpuscular HGB Conc 32 gm/dL (32-36); Mean Corpuscular Hemoglobin 29 pg (26-34); Mean Corpuscular Volume 89 fL (80-100); Monocytes Percent Auto 5.7 % (0.0-11.0); Neutrophils Percent Auto 67.4 % (42.0-72.0); Platelet Count* 192 K/uL (140-440); RDW Coefficient of Variation % 14.1 % (11.5-15.5); Red Blood Count 4.51 m/uL (4.00-5.20)
[2022-11-30 00:44] LABS: Slide Review Reflex No
[2022-11-30 00:56] LABS: Chloride* 107 mmol/L (96-114); Potassium* 3.8 mmol/L (3.6-5.1); Sodium* 143 mmol/L (135-149)
[2022-11-30 00:58] LABS: Est. Creatinine Clearance* 40.83; Estimated Glomerular Filt Rate 59 ml/min; Magnesium* 2.2 mg/dL (1.5-2.6)
[2022-11-30 00:59] LABS: Anion Gap 10 mEq/L (7-15); Blood Urea Nitrogen* 22 mg/dL (7-30); Carbon Dioxide* 26 mmol/L (20-32); Glucose* 130 mg/dL (60-115)
[2022-11-30 01:00] LABS: Calcium* 9.1 mg/dL (8.4-10.6)
[2022-11-30 01:02] LABS: C Reactive Protein* < 0.5 mg/dL (0.5-1.0)
[2022-11-30 01:10] LABS: NT Pro B Type NatriureticPept* 85 pg/mL
[2022-11-30 01:29] LABS: Troponin I* < 0.01 ng/mL (0.01-0.04)
[2022-11-30] MEDS: predniSONE 20 MG TABLET 60 MG PO (01:33)
[2022-11-30] MEDS: 0.9 % SODIUM CHLORIDE 500 ML 500 ML IV (02:50)
[2022-11-30] MEDS: PROMETHAZINE 25 MG/ML INJ 12.5 MG IVP (02:56)
--- NOTE | 2022-11-30 03:19 | CRLHL7_ITS ---
For Patients: As a result of the Century Cures Act, medical imaging exams and procedure reports are released immediately into your electronic medical record. You may view this report before your referring provider. If you have questions, please contact your health care provider. CT ANGIOGRAM NECK DATE: 11/30/2022 CLINICAL HISTORY: Patient with dizziness. TECHNIQUE: Standard helical CT image acquisition of the neck up to the skull base after bolus intravenous contrast enhancement. 2D and 3D MIP images for post-processing were performed and interpreted on an independent workstation and 3D images were permanently archived. COMPARISON: CT same day. FINDINGS: The origins of the great vessels from the aortic arch are patent. The origin of the right vertebral artery is patent. The origin of the left vertebral artery demonstrates mild narrowing. The common carotid arteries are patent. There is no stenosis at the origin of the right internal carotid artery. There is no stenosis at the origin of the left internal carotid artery. The rest of the cervical segments of the internal carotid arteries are patent up to the skull base. The left vertebral artery is dominant. The cervical segments of the vertebral arteries are patent up to the skull base. The visualized lung apices are unremarkable. The thyroid gland is unremarkable. The soft tissues of the neck are unremarkable. There are degenerative changes in the cervical spine. IMPRESSION: Mild narrowing at the origin of the dominant left vertebral artery. Patent rest of the cervical vasculature. Please note that all CT scans at this facility use dose modulation, iterative reconstruction, and/or weight-based dosing when appropriate to reduce radiation dose to as low as reasonably achievable. Dictated by: Bethany Carroll MD @ 11/30/2022 06:27:30 (Electronically Signed)
--- NOTE | 2022-11-30 03:19 | CRLHL7_ITS ---
For Patients: As a result of the Century Cures Act, medical imaging exams and procedure reports are released immediately into your electronic medical record. You may view this report before your referring provider. If you have questions, please contact your health care provider. CT ANGIOGRAM HEAD DATE: 11/30/2022 CLINICAL HISTORY: Patient with dizziness. TECHNIQUE: Standard helical CT image acquisition through the intracranial circulation following intravenous administration of contrast material with bolus tracking. 2D and 3D MIP images for post-processing were performed and interpreted on an independent workstation and 3D images were permanently archived. COMPARISON: CT same day. FINDINGS: There is no proximal intracranial large vessel occlusion. There is no intracranial aneurysm. There is mild intracranial atherosclerosis in the right posterior cerebral artery P2 segment. The right internal carotid artery is normal. The right middle cerebral artery and its branches are normal. The right anterior cerebral artery and its branches are normal. The left internal carotid artery is normal. The left middle cerebral artery and its branches are normal. The left anterior cerebral artery and its branches are normal. The anterior communicating artery is well visualized and appears normal. The right vertebral artery and PICA are normal. The left vertebral artery and PICA are normal. The left vertebral artery is dominant. The basilar artery is patent and appears normal. The right posterior cerebral artery is normal. The left posterior cerebral artery is normal. The visualized venous structures are patent. IMPRESSION: 1. No proximal intracranial large vessel occlusion or intracranial aneurysm. 2. Mild intracranial atherosclerosis in the right posterior cerebral artery P2 segment. Please note that all CT scans at this facility use dose modulation, iterative reconstruction, and/or weight-based dosing when appropriate to reduce radiation dose to as low as reasonably achievable. Dictated by: Bethany Carroll MD @ 11/30/2022 06:29:18 (Electronically Signed)
--- NOTE | 2022-11-30 03:19 | CRLHL7_ITS ---
For Patients: As a result of the Century Cures Act, medical imaging exams and procedure reports are released immediately into your electronic medical record. You may view this report before your referring provider. If you have questions, please contact your health care provider. CT HEAD DATE: 11/30/2022 CLINICAL HISTORY: Patient with dizziness. TECHNIQUE: Standard CT scanning of the head was performed. COMPARISON: None. FINDINGS: There is no intracranial hemorrhage. There is no territorial infarction. There are mild microangiopathic changes. There is moderate diffuse parenchymal volume loss, more pronounced centrally. There is no mass effect or midline shift. The calvarium is unremarkable. The orbits are unremarkable. The paranasal sinuses are unremarkable. The mastoid air cells are unremarkable. The soft tissues are unremarkable. IMPRESSION: 1. No intracranial hemorrhage or territorial infarction. 2. Mild microangiopathic changes and moderate diffuse parenchymal volume loss, more pronounced centrally. Please note that all CT scans at this facility use dose modulation, iterative reconstruction, and/or weight-based dosing when appropriate to reduce radiation dose to as low as reasonably achievable. Dictated by: Bethany Carroll MD @ 11/30/2022 06:23:49 (Electronically Signed)
[2022-11-30 03:46] LABS: INR 0.92 (0.91-1.10); Prothrombin Time 12.9 Seconds
[2022-11-30 03:47] LABS: Partial Thromboplastin Time* 26 Seconds (23-33)
--- NOTE | 2022-11-30 04:48 | PC.NURSE ---
patient ambulates to BR steady, states she still has a little dizziness but it is much improved.
--- NOTE | 2022-11-30 07:37 | CRLHL7_ITS ---
For Patients: As a result of the Century Cures Act, medical imaging exams and procedure reports are released immediately into your electronic medical record. You may view this report before your referring provider. If you have questions, please contact your health care provider. Indication: DIZZINESS Technique: Noncontrast sagittal T1 weighted, axial T2 fast spin echo, FLAIR, SWI, and diffusion weighted images of the head. Comparison: 11/30/2022 CT CTA Findings: Mild scattered patchy foci of increased T2 signal within the periventricular and subcortical white matter of both cerebral hemispheres and fawn. Moderate cerebral parenchymal volume loss. The ventricles, sulci and gyri are of normal size, shape and contour for age and degree of atrophy. No regions of restricted diffusion. Punctate focus of susceptibility artifact in the left inferior cerebellum likely represents a remote microhemorrhage. Midline structures are centrally located. No convincing evidence of suspicious intra- or extra-axial fluid collections. Heavily calcified pineal gland. There is a 2-3 mm focus of T1 shortening in the dorsal aspect of the adenohypophysis that may represent proteinaceous Rathke`s cleft cyst or adenoma. Tortuous left vertebral artery intradural segment mildly indents the left medulla surface. The nasal septum is deviated to the left. Impression: 1. No radiographic evidence of acute intracranial abnormalities. 2. Mild supratentorial and infratentorial white matter changes are non-specific but most likely related to small vessel ischemic disease. Moderate cerebral volume loss. 3. There is a 2-3 mm focus of T1 shortening in the adenohypophysis that may represent proteinaceous Rathke`s cleft cyst or adenoma. Dictated by Kvng Rodriges MD @ 11/30/2022 8:57:13 AM (Electronically Signed)
--- NOTE | 2022-11-30 08:30 | ED.NURSE ---
Back from MRI- had emesis- feeling really dizzy. BP 196/110. notified.
[2022-11-30] MEDS: MECLIZINE HCL 25 MG TABLET PO (09:27)
[2022-11-30] MEDS: diazePAM 5 MG TABLET 2.5 MG PO (09:27)
--- NOTE | 2022-11-30 10:38 | ED.NURSE ---
Patient ambulated around unit with stand by assist and walker. Did not have any nausea but did feel a bit off. Patient and her daughter felt they could safely manage at home with walker and medications. Prescription for walker was provided.
== END 2022-11-30 11:05 | disposition home or self-care (01) ==
PROVIDERS: Emergency Provider Family Medicine; PCP Family Medicine
DX: H81.10 Benign paroxysmal vertigo, unspecified ear (principal); R11.10 Vomiting, unspecified
CPT/HCPCS: 36415; 70450; 70496; 70498; 70551; 80048; 83735; 83880; 84484; 85025; 85610; 85730; 86140; 93005; 96374; 96375; 99284; 99285; A9270; J2405; J2550; J3360; J7030; J7120; J7512; Q9967

== ENCOUNTER 2022-12-21 08:35 | Day surgery (SDC) | payer MEDICARE, BC, SELFPAY ==
[2022-12-21] VITALS (10 sets, daily range): BP systolic 161–187; BP diastolic 86–106; PULSE 58–65; RESP 16; TEMP 36.2; O2SAT 93–96; BMI 27.4
[2022-12-21] MEDS: LACTATED RINGERS 1000 ML 1,000 ML 100 ML IV (08:50)
[2022-12-21] MEDS: SODIUM CHLORIDE 0.9 % (FLUSH) 10 ML SYRINGE IVF (09:15)
[2022-12-21] MEDS: MIDAZOLAM HCL 1 MG/ML inj IVP (09:20)
--- NOTE | 2022-12-21 09:21 | SUR.OPER ---
PATIENT QUESTIONS ANSWERED SATISFACTORILY PREOPERATIVELY.? PATIENT BROUGHT TO OR #2 PER CART AFTER ADMINISTRATION OF A BLOCK.? Patient positioned supine on OR #2 bed.? The perioperative?team supported arms bilaterally on arm boards.? Final approval of positioning by surgeon.
--- NOTE | 2022-12-21 09:36 | W.PM.H&PU ---
History & Physical Update History & Physical Update H&P Reviewed and patient assessed: No changes noted
[2022-12-21] MEDS: CEFAZOLIN 2 GM in 0.9 % SODIUM CHLORIDE Mini-bag 100 ML IVPB (09:45)
--- NOTE | 2022-12-21 10:00 | CRLHL7_ITS ---
For Patients: As a result of the Cures Act, medical imaging exams and procedure reports are released immediately into your electronic medical record. You may view this report before your referring provider. If you have questions, please contact your health care provider. Indication: RIGHT WRIST ORIF Technique: Two fluoroscopic images of the right wrist. Fluoroscopic time 15.4 seconds. IMPRESSION: Fluoroscopic guidance for open reduction internal fixation distal radial fracture. Dictated by Kvng Martinez MD @ 12/21/2022 10:52:00 AM (Electronically Signed)
--- NOTE | 2022-12-21 10:32 | SUR.PREOP ---
TIME?OUT:?20 PT/RN/MDA?VERIFICATION?OF?SURGICAL?SITE,?PROCEDURE,?AND?CONSENT OBTAINED?PRIOR?TO?INVASIVE?PROCEDURE.
[2022-12-21] MEDS: BACITRACIN OINTMENT BULK TUBE 1 APPLIC TOPICAL (10:58)
--- NOTE | 2022-12-21 11:10 | PM.ORPRC ---
Procedure Note Date of procedure: 12/21/22 Procedure: PREOPERATIVE DIAGNOSES: 1. Right distal radius fracture intraarticular with comminution and dorsal angulation/displacement - unstable, 3+ parts] 2. Right carpal tunnel syndrome, acute POSTOPERATIVE DIAGNOSES: 1. Right distal radius fracture intraarticular with comminution and dorsal angulation/displacement - unstable, 3+ parts] 2. Right carpal tunnel syndrome, acute NAME OF OPERATION: 1. Right distal radius open reduction with internal fixation of intraarticular fracture (3+ parts) 2. Right open carpal tunnel release 3. 74150 - intraoperative fluoroscopy up to 1 hour. SURGEON: Mauro Raygoza MD PUBLIC HEALTH SPECIALIST: Ash Small Pac - Of note, an oral surgery assistant was critical for this case to aide in patient positioning, limb manipulation, tissue retraction, closure, and splinting. ANESTHESIA: Supraclavicular block plus MAC IMPLANTS: Synthes dual column volar locking plate with 1.8 mm distal locking pegs and 2.4 and 2.7 mm proximal locking and nonlocking screws, respectively. TOURNIQUET: 36 minutes at 250 torr. INDICATIONS: The patient is a pleasant, 72-year-old female who sustained a right wrist injury after a fall. They had difficulty with use of the extremity and deformity. Workup included xrays which revealed an unstable fracture. In addition, she was found have some numbness and tingling primarily involving the volar thumb, but to a lesser degree the volar index and long finger. This was relatively constant since the injury. No such findings prior to the injury. Suspicious of acute carpal tunnel syndrome. Given these findings, surgery was recommended to stablize the fracture and released the carpal tunnel. FINDINGS: Closed, comminuted, intra-articular, 3+ part distal radius fracture. PROCEDURE: Following a thorough discussion of risks, benefits, and alternatives, consent was obtained and the operative extremity was marked. The patient was brought to the operating room and placed supine on the operating table. Induction of anesthesia was achieved. Appropriate time out was performed identifying proper patient, site and procedure. 1 gram of iv Ancef was administered within 1 hour of incision preoperatively. The right upper extremity was prepped and draped in the appropriate sterile fashion using ChloraPrep prep. The limb was exsanguinated and the tourniquet inflated. A longitudinal incision was made overlying the FCR tendon. Sharp incision through skin and subcutaneous tissue allowed identification of the FCR tendon. The superficial sheath was sharply divided, the tendon retracted ulnarly, and the deep fascial sheath also released. The FPL was retracted ulnarly and the pronator quadratus was sharply released from the radial border of the radius and subperiosteally elevated. The fracture was encountered and cleared of interposed periosteum / fracture hematoma. A reduction was performed and the appropriate plate selected. Temporary stabilization allowed C-arm fluoroscopy to confirm proper fracture reduction and plate positioning. The oblong hole was filled with a nonlocking screw followed by multiple distal locking pegs being careful to keep these in subchondral bone and extraarticular. Finally, the remaining proximal shaft screw was drilled and placed. Fluoroscopic imaging confirmed the improved position and showed the fracture to be stable. We then turned our attention to the open carpal tunnel release. While the incision could of been extended across the wrist joint, we elected to make a separate incision. An incision was made in line with the radial border of the ring finger beginning 1 cm distal to the distal wrist crease and progressing for another 2.5cm distal. Caution was taken to stay proximal to De Jesus's cardinal line. Sharp incision through the skin, subcutaneous tissue, and palmar fascia was performed. The thenar musculature was bluntly elevated off the transverse carpal ligament. The ligament was directly visualized, and divided sharply with a 15 blade. This was released from its most proximal to the most distal extent. Metzenbaum scissor was also utilized to release the fascia extension proximally. We confirmed complete release of the transverse carpal ligament. Closure was performed with 4-O nylon in interrupted fashion. Soft dressings were applied, and the patient was transferred to the recovery room in stable condition. At this stage, the wound was thoroughly irrigated with normal saline. Closure performed with 0 Vicryl for the pronator quadratus, followed by deflation of the tourniquet. All major bleeding points were cauterized. Closure was then completed with 3-0 Vicryl for the subcutaneous, and 4-0 statafix for subcuticular closure. 4-0 nylon was utilized for closure of the carpal tunnel incision. Dressings were applied along with a volar/dorsal splint. The patient was awoken from anesthesia and transferred to PACU in stable condition. PLAN: 1. Elevate operative extremity. 2. Ice, acetominphen or ibuprofen PRN. 3. Tylenol with codeine (Tylenol #3) for pain as needed. 4. Follow up with me in 10-16 days for wound check and splint removal suture removal, and short-arm cast application. Some type of immobilization for 3 weeks from surgery.
--- NOTE | 2022-12-21 11:30 | P.ANES_ITS ---
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
--- NOTE | 2022-12-21 11:57 | P.NB_ITS ---
Nerve Block Nerve Block Time Seen by Provider: 09:32 Date Seen: 12/21/22 Type of block requested by surgeon for post-operative analgesia: axillary Side: left Time out performed: Yes Verification of patient name: Yes Verification of date of : Yes Site marking: site marked Name of person performing procedure: Chris Continuous monitoring Was continuous monitoring of O2 sat, B/P, phototypesetting equipment monitor, recorded every 15 minutes?: Yes Procedure Checklist: sterile prep, needles and gloves Ultrasound guided. Images saved: Yes Medications given in 5ml increments after negative aspiration: Ropivicaine %: 0.5 mL: 30 Needle gauge: 22 Patient tolerated procedure well: Yes Additional comments: Needle noted adjacent to nerve Block Charges Block Charge (with Pro Fee): Brachial Plexus Use of Ultrasound Machine for Block: Yes- US Guidance/pain block
--- NOTE | 2022-12-21 11:58 | W.ANESCHARGE ---
Anesthesia Charges Start Date/Time Anesthesia Start Date: 12/21/22 Anesthesia Start Time: 09:37 Stop Date/Time Anesthesia Stop Date: 12/21/22 Anesthesia Stop Time: 11:22 Summary Extremes of Age - Over 70 or under 1: MDA
--- NOTE | 2022-12-21 13:06 | SUR.PHASEII ---
Anesthesia notified of pt's BP's. Advised patient to take prescribed blood pressure medications when she gets home.
== END 2022-12-21 13:08 | disposition home or self-care (01) ==
PROVIDERS: PCP Family Medicine; Visit Provider Orthopaedic Surgery Sports Medicine
PROC: (CPT 25575; principal; 2022-12-21 10:00)
DX: S52.571A Other intraarticular fracture of lower end of right radius, initial encounter for closed fracture (principal); G56.01 Carpal tunnel syndrome, right upper limb; G89.18 Other acute postprocedural pain
CPT/HCPCS: 25609; 64721; 01830; 64415; 73110; 76942; 99100; A4580; C1713; J0690; J2250; J2704; J2795; J7120

== ENCOUNTER 2023-06-08 14:35 | Outpatient (CLI) | payer MEDICARE, BC, SELFPAY ==
--- OUTSIDE RECORDS SUMMARY | 2023-06-09 05:28 | XMS_ITS | Clinical Summary ---
Author Name Unknown Organization [employer] Address [place], [place] [address] Care Team Providers Care Manager Competitive Intelligence Name Role Phone Unavailable Primary Care Provider Unavailabl e Allergies Active Allergy Reactions Criticality Noted Date Comments Fentanyl Vomiting 09/06/2021 vomiting x3 days Medications Medication Sig Dispensed Refills Start Date End Date Status ASPIRIN 81 MG TAB, DELAYED RELEASEIndications:Un specified essential hypertension take 1 tablet (81 mg) by oral route once daily 0 10/10/2007 Active prochlorperazine (COMPAZINE) 10 mg tabletIndications:Jamie fox without status migrainosus, not intractable, unspecified migraine type Take 1 tablet by mouth every 6 hours if needed for abortive therapy for migraine headache along with 500mg naproxen. 30 tablet 1 11/17/2015 Active ketoconazole 2% shampoo (NIZORAL) 2 % shampoo WASH AFFECTED AREAS OF THE SCALP 2 TO 3 TIMES WEEKLY. LATHER AND LET SIT 3 TO 5 MINUTES PRIOR TO RINSING 01/20/2020 Active fluticasone (50 mcg per actuation) nasal solution (FLONASE) INSTILL 2 SPRAYS IEN D 11/16/2019 Active clobetasol 0.05% TOPICAL (TEMOVATE) 0.05 % external solution 01/20/2020 Active triamcinolone (ARISTOCORT; KENALOG) 0.1 % cream APPLY TO THE AFFECTED AREA ON BODY ONCE TO TWICE DAILY FOR UP TO 2 WEEKS AT A TIME. REPEAT NEEDED FOR FLARES 01/20/2020 Active mdfus-xohck-3-dha-epa -lipids 169-39-47-50 mg cap one capsule once daily 0 09/23/2020 Active medication order composer once daily pervagen - memory 0 09/23/2020 Active loperamide (IMODIUM) 2 mg capsuleIndications:Ch ronic diarrhea Take 1 Capsule (2 mg) by mouth 2 times daily if needed for Diarrhea (chronic). 0 09/23/2020 Active omeprazole (PriLOSEC) 20 mg Delayed-Release capsuleIndications:Ga stroesophageal reflux disease with esophagitis, unspecified whether hemorrhage Take 1 Capsule (20 mg) by mouth once daily before a meal. 90 Capsule 3 09/06/2021 Active dilTIAZem CD (CARDIZEM CD) 120 mg extended release 24 hr capsuleIndications:Co ronary vasospasm (HC),Hypertension, unspecified type TAKE 1 CAPSULE(120 MG) BY MOUTH EVERY DAY 90 Capsule 1 03/04/2022 Active metoprolol succinate (TOPROL XL) 25 mg Sustained-Release tabletIndications:Hyp ertension, unspecified type,Migraine without status migrainosus, not intractable, unspecified migraine type TAKE 1 TABLET(25 MG) BY MOUTH EVERY DAY 90 Tablet 1 03/04/2022 Active sertraline (ZOLOFT) 50 mg tabletIndications:Anx iety,Depression, recurrent (HC) TAKE 1 TABLET(50 MG) BY MOUTH EVERY DAY 30 Tablet 05/20/2022 Active naproxen (NAPROSYN) 500 mg tabletIndications:Jamie ruddy without status migrainosus, not intractable, unspecified migraine type TAKE 1 TABLET(500 MG) BY MOUTH EVERY 12 HOURS NEEDED FOR HEADACHE 30 Tablet 10/02/2022 Active Active Problems Problem Noted Date Diagnosed Date Depression, recurrent 09/06/2021 Chronic diarrhea 09/23/2020 Biliary dyskinesia 09/23/2020 Adenomatous polyp of colon 09/22/2020 Overview: sessile serrated adenoma last colonoscopy 11/2019 [facility] [place], 13-14 polyps Prinzmetal angina 09/22/2020 Overview: Coronary angiogram Garg without significant disease 11/16/2015 history of normal echo Hiatal hernia 09/22/2020 Other hemorrhoids 09/22/2020 Esophagitis 09/22/2020 Gastroesophageal reflux disease with esophagitis 09/22/2020 Vasospastic angina 06/08/2018 Hyperlipidemia 12/07/2015 Chest pain 11/16/2015 Overview: had evaluation at [place] and told not to take imitrex any more, no further chest pain. Psoriasis 08/01/2012 Hypertension 08/01/2012 Dysthymia 10/10/2007 Osteoporosis, unspecified Overview: fosamax 2001 declines further medications or testing DEXA 12/05/19 Migraine, unspecified, witho ut mention of intractable migraine without mention of status migrainosus Overview: CAN'T TAKE IMITREX using naproxen and metoprolol Personal history of colonic polyps Resolved Problems Problem Noted Date Diagnosed Date Resolved Date Gastroesophageal reflux dise ase without esophagitis 09/22/2020 09/22/2020 Routine general medical exam ination at a health care facility 01/27/2009 09/23/2020 Overview: Colonoscopy normal 2005 Unspecified essential hypertension 10/10/2007 09/23/2020 Diarrhea 10/10/2007 01/27/2009 Depressive disorder, not elsewhere classified 10/10/2007 Other psoriasis 09/23/2020 Immunizations Name Administration Dates Next Due Influenza, High-dose Inactivated 11/08/2018 Influenza, High-dose Quadrivalent Inactivated Influenza, IIV3 (Age >=3 years) 10/20/2008,12/11 Pneumococcal Poly,23-Valent (Pneumovax) 06/09/19 17 Pneumococcal conj 13-Valent (Prevnar 13) 015 Td (Age >=7 Years) 06/08/2016 Tdap 09/06/2006 Zoster (Zostavax-ZVL, live) 02/01/2011 Family History Medical History Relation Name Comments Cancer Brother 1 Presley thyroid Hypertension Brother 1 Presley Hypertension Brother 2 Hypertension Brother 3 Hypertension Brother 4 Emphysema Father Gallbladder disease Father Cancer-breast Mother Heart attack Mother At age 87 Hypertension Mother Stroke Paternal Grandmother age 60' s, lived into 90's Hypertension Sister 1 martha Pennbie Hypertension Sister 2 Cancer-colon No Family History [...] Tobacco Use Types Packs/Day Years Used Date Smoking Tobacco: Former Smokeless Tobacco: Never Comments:17 light smoking Alcohol Use Standard Drinks/Week Comments No 0 (1 standard drink = 0.6 oz pur e alcohol) PHQ-2 Answer Date Recorded PHQ-2 TOTAL SCORE 2 09/06/2021 Social Connections Answer Date Recorded Frequency of Communication with Friends and Fami ly Not on file 10/01/2022 Financial Resource Strain Answer Date R ecorded Difficulty of Paying Living Expenses 3 09/06/2021 Difficulty of Paying Living Expenses Not on file 09/06/2021 Food Insecurity Answer Date Recorded Worried About Running Out of Food in the Last Ye ar 1 09/06/2021 Transportation Needs Answer Date Record ed Lack of Transportation (Medical) 1 09/06/2021 Housing Stability Answer Date Recorded Unable to Pay for Housing in the Last Year 1 09/06/2021 Sex and Gender Information Value Date Recorded Sex Assigned at Not on file Gender Identity Not on file Sexual Orientation Not on file Obstetrics History Para Term AB IAB SAB Ectopic Multiple Livin g Live Births 4 4 4 Date Outcome GA Total Labor Labor/2nd/3rd Weight Sex Delivery Anes PTL Maryann A1 A5 Name Cl in Para Para Para Para Last Filed Vital Signs Vital Sign Reading Time Taken Comments Blood Pressure 128/82 09/06/2021 12:55 PM CDT Pulse 76 09/06/2021 12:55 PM CDT Temperature 36.5 ??C (97.7 ??F) 11/17/2015 3:00 PM CD T Respiratory Rate 16 11/04/2020 12:30 PM CDT Oxygen Saturation 96% 11/04/2020 12:45 PM CDT Inhaled Oxygen Concentration - - Weight 61.2 kg (135 lb) 09/06/2021 12:55 PM CDT Height 154.9 cm (5' 1) 09/06/2021 12:55 PM CDT Body Mass Index 25.51 09/06/2021 12:55 PM CDT Plan of Treatment Health Maintenance Due Date Last Done Comments Zoster (shingles) series for age 50+ (2 of 3) 03/29/2011 02/01/2011 DEXA/DXA scan for age 65+ 2013 10/12/2007 Medicare Wellness for age 65+ 09/24/2021 09/23/2020 BMI (ht and wt on same day) for age 18+ 09/06/2022 09/06/2021, 09/23/2020 Depression screening for age 12+ 09/06/2022 09/06/2021, 09/03/2021, 09/23/2020 COVID-19 vaccine series ( season) 2022 Influenza for age 65+ 10/08/2023 11/29/2019 , 11/08/2018, 10/20/2008, Additional history exists Tetanus booster 06/08/2026 06/08/2016, 09/06/2006 Lipids for age 45-75 09/06/2026 09/06/2021, 09/23/2020, 10/12/2007 Colonoscopy through age 75 01/07/203201/06, 11/04/2020, 12/12/2019, Additional history exists Tdap Completed 09/06/2006 Pneumococcal series for age 65+ Completed 7, 10/30/2014 Hepatitis C screening for ag e 18-79 Completed 09/23/2020 Procedures Procedure Name Priority Date/Time Associated Diagnosis Comments SCAN-COLONOSCOPY 01/06/2022 12:0 0 AM [facility]OL[facility] PRIEST LIPID PANEL W REFLEX MEASURED LDL Routine 09/06/2021 1:44 PM CDT Hypertension, unspecified type ANTI HCV Routine 09/23/2020 11:30 AM CDT Need for hepatitis C screening test XR DXA BONE DENSITY 2 SITES AXIAL Routine 10/12/2007 8:35 AM CDT Unspecified Osteoporosis from Last 3 Months or Most Recently Relevant to Health Maintenance Results * SCAN-COLONOSCOPY (01/06/2022 12:00 AM CATHOLIC PRIEST) Scanner OTHER * LIPID PANEL W REFLEX MEASURED LDL (09/06/2021 1:44 PM CDT) CHOLESTEROL,TOTAL 168 100 - 199 mg/dL 09/06/2021 2:35 PM CDT [facility] TRIGLYCERIDES 75 <150 mg/dL 09/06/2021 2:35 PM T [facility] HDL CHOLESTEROL 61 >40 mg/dL 2:35 PM CDT [facility] NON-HDL CHOLESTEROL 107 <145 mg/dl 09/06/2021 2:[address] [facility] CHOL/HDL RATIO 2.75 <4.50 09/06/2021 2:35 PM T [facility] LDL CHOLESTEROL 92 <=130 mg/dL 09/06/2021 2:[address] [facility] VLDL CHOLESTEROL 15 <=30 mg/dL 09/06/2021 2:[address] [facility] PROVIDER ORDERED STATUS RANDOM 09/06/2021 2:35 PM T [facility] Blood BLOOD SPECIMEN / Unknown Venipuncture / Unknown 09/06/2021 1:44 PM CDT 09/06/2021 1:46 PM CDT Veronica Leon NP CHEMISTRY [facility] [address] [place] [address] * ANTI HCV (09/23/2020 11:30 AM CDT) Pathologist [facility] HEPATITIS C ANTIBODY Non-React caleb Non-React caleb 09/23/2020 9:22 PM CDT [facility] Comment:Antibodies to HCV no t detected; does not exclude the possibility of exposure to HCV. Blood BLOOD SPECIMEN / Unknown Venipuncture / Unknown 09/23/2020 11:30 AM CDT 09/23/2020 11:31 AM CDT Veronica Leon NP SEND OUTS [facility] [address] [place] [address], * XR DEXA BONE DENSITY 2 SITES (10/12/2007 8:35 AM CDT) Anatomical Region Laterality Modality Spine, HIPS, HIPL, HIPR Other 10/12/2007 8:35 AM CDT Narrative 10/15/2007 1:51 PM CDT Please see scanned document for results of this study. Procedure Note Mayda Satcy PA - 10/17/2007 Please see scanned document for results of this study. Trish Valenzuela DEXA from Last 3 Months or Most Recently Relevant to Health Maintenance Advance Directives * Full Code (Latest Code Status on File) Date Activated Date Inactivated Comments 11/04/2020 10:15 AM 11/04/2020 3:06 PM Question Answer Comments Code Status Discussion: Per Existing Order * Full Code Date Activated Date Inactivated Comments 11/16/2015 3:55 PM 11/17/2015 7:41 PM * Full Code Date Activated Date Inactivated Comments 11/16/2015 3:36 PM 11/16/2015 3:55 PM
== END 2023-06-08 14:36 | disposition home or self-care (01) ==
LOC: NFLDREF 06-09 05:27
PROVIDERS: PCP Family Medicine; Referring Provider Family Medicine; Visit Provider Family Medicine
DX: I10 Essential (primary) hypertension (principal); M81.0 Age-related osteoporosis without current pathological fracture; E78.5 Hyperlipidemia, unspecified; R73.9 Hyperglycemia, unspecified; Z13.29 Encounter for screening for other suspected endocrine disorder
CPT/HCPCS: 80053; 80061; 82306; 83036; 84443

== ENCOUNTER 2024-06-18 14:20 | Outpatient (CLI) | payer MEDICARE, BC, SELFPAY | END 2024-06-18 14:21 | disposition home or self-care (01) | LOC: NFLDREF 06-26 00:12 | PROVIDERS: PCP Family Medicine; Referring Provider Family Medicine; Visit Provider Family Medicine | DX: M81.0 Age-related osteoporosis without current pathological fracture (principal); I10 Essential (primary) hypertension; F33.0 Major depressive disorder, recurrent, mild; E78.5 Hyperlipidemia, unspecified; R73.9 Hyperglycemia, unspecified; R73.01 Impaired fasting glucose; F41.1 Generalized anxiety disorder; G43.109 Migraine with aura, not intractable, without status migrainosus | CPT/HCPCS: 80053; 80061; 82306 ==

== ENCOUNTER 2024-09-23 12:50 | Outpatient (CLI) | payer MEDICARE, BC, SELFPAY ==
--- NOTE | 2024-09-23 13:00 | CRLHL7_ITS ---
For Patients: As a result of the Century Cures Act, medical imaging exams and procedure reports are released immediately into your electronic medical record. You may view this report before your referring provider. If you have questions, please contact your health care provider. INDICATION: BILATERAL SCREENING MAMMOGRAM, ASYMPTOMATIC 74 Y/O FEMALE COMPARISON: 09/14/2022, 12/01/2018, 12/08/2016 TECHNIQUE: Digital mammogram in CC and MLO projections including computer-aided detection (CAD) and tomosynthesis. BREAST COMPOSITION: There are scattered areas of fibroglandular density. FINDINGS: No suspicious findings. ASSESSMENT: BI-RADS 1 Negative RECOMMENDATION: Annual screening mammogram. A lay language report of this examination will be provided to the patient. Dictated by: Elena Starkey MD @ 09/24/2024 10:39:48 (Electronically Signed)
== END 2024-09-23 12:51 | disposition home or self-care (01) ==
LOC: MAMMO 12:52
PROVIDERS: PCP Family Medicine; Visit Provider Family Medicine
DX: Z12.31 Encounter for screening mammogram for malignant neoplasm of breast (principal)
CPT/HCPCS: 77063; 77067

== ENCOUNTER 2024-11-25 13:27 | Outpatient (CLI) | payer MEDICARE, BC, SELFPAY | END 2024-11-25 13:28 | disposition home or self-care (01) | LOC: NFLDREF 11-28 19:12 | PROVIDERS: PCP Family Medicine; Referring Provider Family Medicine; Visit Provider Physician Assistant Surgical | DX: N30.01 Acute cystitis with hematuria (principal) | CPT/HCPCS: 87086 ==